=== PATIENT | male | born 1955 | race Caucasian/White ===

== ENCOUNTER 2018-04-05 14:11 | Emergency (ER) | payer OTHER ==
[~2018-04-05] VITALS: Ht 167.6 cm; Wt 103.9 kg
--- NOTE | ~2018-04-05 | EKG ---
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[employer] [facility] : 1955 Requested By: Zachery Michelle Order Number: [id number] MD: Jose Caballero Measurements Intervals [place] Rate: 73 P: -16 NC: 56 QRS: 16 QRSD: 101 T: -5 QT: 379 QTc: 418 Interpretive Statements Sinus rhythm Borderline T abnormalities, inferior leads Compared to ECG 10/17/2012 16:23:18 No significant change was found Electronically Signed On 04-05-2018 16:41:56 CDT by Jose Caballero [email or web address] <ELECTRONICALLY SIGNED> By: Jose Caballero MD, [facility] 04/05/18 1641 1452 51 Jose Caballero MD, FACC /EPI
[~2018-04-05 14:11] MED LIST: ASPIRIN EC81 M1 PO; CARDURA4 MG PO; COLACE100 MG PO; LOPRESSOR100 MG PO; LOVASTAT20 PO; PAIN & FEVER325 MG PO
[2018-04-05 14:37] LABS: ABSOLUTE NEUTROPHILS 2.8 thou/uL (1.4-8.2); BASOPHILS 0.6 % (0.0-2.0); EOSINOPHILS 1.5 % (0.0-3.0); HEMATOCRIT 44.8 % (42.0-52.0); HEMOGLOBIN 15.4 gm/dL (14.0-18.0); LYMPHOCYTES 47.2 % (24.0-44.0); MCH 30.3 pg (26.0-34.0); MCHC 34.5 g/dL (28.0-37.0); MCV 87.9 fL (80.0-100.0); MONOCYTES 6.4 % (1.0-8.0); PLATELET COUNT 209 thou/uL (150-400); POLYS 44.3 % (36.0-66.0); RBC 5.09 mil/uL (4.50-6.00); WBC 6.3 thou/uL (4.0-11.0)
[2018-04-05 14:45] LABS: ANION GAP 9 mmol/L (7-16); BUN 11 mg/dL (7-18); CHLORIDE 104 mmol/L (98-107); CO2 27 mmol/L (21-32); GLUCOSE 142 mg/dL (74-106); POTASSIUM 3.5 mmol/L (3.5-5.1); SODIUM 140 mmol/L (136-145)
[2018-04-05 14:54] LABS: ALBUMIN 3.6 g/dL (3.4-5.0); MAGNESIUM 1.8 mg/dL (1.8-2.4); SGOT 24 U/L (15-37); SGPT 40 U/L (30-65); TOTAL BILIRUBIN 0.5 mg/dL (<0.1-1.0); TOTAL PROTEIN 6.9 g/dL (6.4-8.2); TROPONIN-I <0.06 ng/mL (<0.06)
[2018-04-05] MEDS ORDERED: ANTIVERT25 MG PO (15:00)
== END 2018-04-05 15:45 | disposition home or self-care (01) ==
LOC: ER 14:11
PROVIDERS: Emergency Medicine
DX: R42 Dizziness and giddiness (principal); I10 Essential (primary) hypertension; E78.5 Hyperlipidemia, unspecified; K21.9 Gastro-esophageal reflux disease without esophagitis; Z91.040 Latex allergy status

== ENCOUNTER 2021-03-19 15:22 | Emergency (ER) | payer OTHER ==
[~2021-03-19] VITALS: Ht 167.6 cm; Wt 103.4 kg
[~2021-03-19 15:22] MED LIST changes: +ANTIVERT25 MG PO
[2021-03-19] MEDS ORDERED: COZAAR 25 MG TA25 M1 PO (15:53)
[2021-03-19 16:07] LABS: ABSOLUTE NEUTROPHILS 5.1 thou/uL (1.4-8.2); BASOPHILS 0.6 % (0.0-2.0); HEMATOCRIT 44.8 % (42.0-52.0); HEMOGLOBIN 14.9 gm/dL (14.0-18.0); LYMPHOCYTES 29.2 % (24.0-44.0); MCH 29.5 pg (26.0-34.0); MCHC 33.2 g/dL (28.0-37.0); MCV 88.9 fL (80.0-100.0); MONOCYTES 9.3 % (1.0-8.0); PLATELET COUNT 227 thou/uL (150-400); POLYS 59.9 % (36.0-66.0); RBC 5.04 mil/uL (4.50-6.00); RDW 13.9 % (10.5-14.5); WBC 8.5 thou/uL (4.0-11.0)
[2021-03-19 16:15] LABS: CALCIUM 8.4 mg/dL (8.5-10.1); CREATININE 1.1 mg/dL (0.7-1.3); POTASSIUM 3.9 mmol/L (3.5-5.1)
[2021-03-19 16:22] LABS: ALBUMIN 3.7 g/dL (3.4-5.0); TOTAL BILIRUBIN 0.8 mg/dL (0.2-1.0); TOTAL PROTEIN 6.9 g/dL (6.4-8.2)
[2021-03-19 18:00] VITALS: BP 164/92
--- NOTE | 2021-03-20 06:56 | EKG ---
[place] [address] [address] [facility] [place] [address] ELECTROCARDIOGRAM REPORT Name: NGHIA AUSTIN [facility]: [facility] [id number] Admission: 03/19/21 Attend Phys: Discharge: 03/19/21 Date of : 55 Report #: [id number] [facility] ED Test Date: 2021-03-19 Test Time: 15:19:24 Pat Name: NGHIA AUSTIN Department: Room: Gender: Linen Worker: : 1955 Requested By: Avinash Murray Order Number: [id number] MD: Osmani Mena Measurements Intervals [place] Rate: 103 P: IA: QRS: 13 QRSD: 134 T: 186 QT: 332 QTc: 435 Interpretive Statements SINUS TACHYCARDIA Left bundle branch block Baseline wander in lead(s) V1 Compared to ECG 04/05/2018 14:52:07 Left bundle-branch block now present T-wave abnormality no longer present Electronically Signed On 03-20-2021 6:56:24 CDT by Osmani Mena [email or web address] <ELECTRONICALLY SIGNED> By: Osmani Mena MD, [facility] 03/20/21 0656 1519 1519 Osmani Mena MD, FAC /EPI
== END 2021-03-19 18:00 | disposition home or self-care (01) ==
LOC: ER 15:22
PROVIDERS: Emergency Medicine
DX: R07.89 Other chest pain (principal); I10 Essential (primary) hypertension; E78.5 Hyperlipidemia, unspecified; K21.9 Gastro-esophageal reflux disease without esophagitis; Z79.891 Long term (current) use of opiate analgesic; Z79.82 Long term (current) use of aspirin; Z79.899 Other long term (current) drug therapy; Z91.040 Latex allergy status